=== PATIENT | female | born 1970 | race Caucasian/White ===

== ENCOUNTER 2018-06-20 17:38 | Emergency (ER) | payer OTHER ==
--- NOTE | 2018-06-20 18:07 | Emergency Department Record ---
History of Present Illness - General Chief complaint: Extremity Problem Stated complaint: FALL LT WRIST /HIP PAIN Time Seen by Provider: 06/20/18 17:45 Source: Patient, RN notes reviewed Mode of Arrival: Ambulatory - History of Present Illness Initial comments: fall one week ago and has pain in the left low back and left wrist no swelling. Patient states usin motrin 800 mg three times a day Onset/Timin -: Week(s) Location: Left, Arm, Thigh History of Same: No Severity scale (1-10): 5 Quality: Sharp Consistency: Constant Improves with: Immobilization, Rest Worsens with: Exertion, Walking, Weight bearing Associated Symptoms: Denies other symptoms - Related Data Previous Rx's Medication Instructions Recorded Cyclobenzaprine HCl [Flexeril] 10 mg PO TID #30 tablet 06/20/18 Naproxen [Naprosyn] 500 mg PO BID #30 tablet 06/20/18 Allergies Allergy/AdvReac Type Severity Reaction Status Date / Time diphenhydramine Allergy HIVES Verified 06/20/18 17:44 [From [facility]] Travel Screening - Travel/Exposure Within Last 30 Days Have you traveled within the last 30 days?: No - Travel/Exposure Within Last Year Have you traveled outside the [place] in the last year?: No - Additonal Travel Details Have you been exposed to anyone with a communicable illness?: No - Travel Symptoms Symptom Screening: None Review of Systems Reviewed: No additional complaints except as noted below Constitutional: Reports: As per HPI. Denies: Chills, Fever, Malaise, Night sweats, Weakness, Weight change Eyes: Reports: As per HPI. Denies: Eye discharge, Eye pain, Photophobia, Vision change ENT: Reports: As per HPI. Denies: Congestion, Dental pain, Ear pain, Epistaxis , Hearing loss, Throat pain Respiratory: Reports: As per HPI. Denies: Cough, Dyspnea, Hemoptysis, Stridor, Wheezes Cardiovascular: Reports: As per HPI. Denies: Arrhythmia, Chest pain, Dyspnea on exertion, Edema, Murmurs, Orthopnea, Palpitations, Paroxysmal nocturnal dyspnea, Rheumatic Fever, Syncope Endocrine: Reports: As per HPI. Denies: Fatigue, Heat or cold intolerance, Polydipsia, Polyuria Gastrointestinal: Reports: As per HPI. Denies: Abdominal pain, Constipation, Diarrhea, Hematemesis, Hematochezia, Melena, Nausea, Vomiting Genitourinary: Reports: As per HPI. Denies: Abnormal menses, Discharge, Dyspareunia, Dysuria, Frequency, Hematuria, Incontinence, Retention, Urgency Musculoskeletal: Reports: As per HPI. Denies: Arthralgia, Back pain, Gout, Joint swelling, Myalgia, Neck pain Skin: Reports: As per HPI. Denies: Bruising, Change in color, Change in hair/ nails, Lesions, Pruritus, Rash Neurological: Reports: As per HPI. Denies: Abnormal gait, Confusion, Headache, Numbness, Paresthesias, Seizure, Tingling, Tremors, Vertigo, Weakness Psychiatric: Reports: As per HPI. Denies: Anxiety, Auditory hallucinations, Depression, Homicidal thoughts, Suicidal thoughts, Visual hallucinations Hematological/Lymphatic: Reports: As per HPI. Denies: Anemia, Blood Clots, Easy bleeding, Easy bruising, Swollen glands Past Medical History - SOCIAL HISTORY Smoking Status: Never smoker Alcohol Use: None Drug Use: None - RESPIRATORY Hx Respiratory Disorders: No - CARDIOVASCULAR Hx Cardio Disorders: No - NEURO Hx Neuro Disorders: No - GI Hx GI Disorders: No - Hx Genitourinary Disorders: No - ENDOCRINE Hx Endocrine Disorders: No Comment:: hypoglycemia - MUSCULOSKELETAL Hx Musculoskeletal Disorders: No - PSYCH Hx Psych Problems: No - HEMATOLOGY/ONCOLOGY Hx Hematology/Oncology Disorders: No Family Medical History Any Significant Family History?: No Physical Exam - General General Appearance: Alert, Oriented x3, Cooperative, No acute distress - Head Head exam: Normal inspection - Eye Eye exam: Normal appearance, PERRL Pupils: Normal accommodation - ENT ENT exam: Normal exam, Mucous membranes moist, Normal external ear exam, Normal orophraynx, TM's normal bilaterally Ear exam: Normal external inspection. negative: External canal tenderness Nasal Exam: Normal inspection. negative: Discharge, Sinus tenderness Mouth exam: Normal external inspection, Tongue normal Teeth exam: Normal inspection. negative: Dental caries Throat exam: Normal inspection. negative: Tonsillar erythema, Tonsillar exudate - Neck Neck exam: Normal inspection, Full ROM. negative: Tenderness - Respiratory Respiratory exam: Normal lung sounds bilaterally. negative: Respiratory distress - Cardiovascular Cardiovascular Exam: Regular rate, Normal rhythm, Normal heart sounds - GI/Abdominal GI/Abdominal exam: Soft, Normal bowel sounds. negative: Tenderness - Rectal Rectal exam: Deferred - exam: Deferred - Extremities Extremities exam: Normal inspection, Full ROM, Normal capillary refill, Tenderness (left wrist) - Back Back exam: Reports: Normal inspection, Full ROM, Muscle spasm, Tenderness ( lumbar spine area with radiation into her buttock). Denies: Rash noted - Neurological Neurological exam: Alert, Normal gait, Oriented X3, Reflexes normal - Psychiatric Psychiatric exam: Normal affect, Normal mood - Skin Skin exam: Dry, Intact, Normal color, Warm Course Vital Signs 06/20/18 17:45 Temperature 97.9 F Pulse Rate 97 H Respiratory 18 Rate Blood Pressure 104/72 Pulse Ox 98 Medical Decision Making - Data Complexity MDM Data: X-Ray Ordered and/or Reviewed (negative wrist and lumbar spine) Disposition Clinical Impression: Left wrist sprain Qualifiers: Encounter type: initial encounter Qualified Code(s): S63.502A - Unspecified sprain of left wrist, initial encounter Lumbar strain Qualifiers: Encounter type: initial encounter Qualified Code(s): S39.012A - Strain of muscle, fascia and tendon of lower back, initial encounter Disposition: Home, Self-Care Condition: (1) Good Additional Instructions: follow up with family in 5 days Prescriptions: Cyclobenzaprine HCl [Flexeril] 10 mg PO TID #30 tablet Naproxen [Naprosyn] 500 mg PO BID #30 tablet Forms: Patient Portal Access Time of Disposition: 18:36 Quality - Quality Measures Quality Measures: N/A - Blood Pressure Screening Does Patient Have Any of the Following: No Blood Pressure Classification: Normal BP Reading Systolic Measurement: 104 Diastolic Measurement: 72 Screening for High Blood Pressure: < Normal BP, F/U Not Required > [G8783]
[2018-06-20] MEDS ORDERED: CYCLOBENZAPRINE 10MG TABLET PO ONE (18:38)
[2018-06-20] MEDS ORDERED: NAPROXEN 250 MG TABLET PO ONE (18:38)
--- NOTE | 2018-06-21 10:40 | RADIOLOGY REPORT ---
EXAM: LEFT WRIST HISTORY: PATIENT FELL A WEEK AGO WITH PAIN LEFT WRIST. TECHNIQUE: Five views of the left wrist were obtained. Comparison: None. Encounter: Initial. FINDINGS: No fracture of the left wrist identified. The joint space between the scaphoid and lunate bones is never clearly delineated on these views. No actual dislocations in the wrist identified and this may just be due to positioning, but if wrist symptoms persist, follow-up MRI of the left wrist would be suggested for further evaluation. IMPRESSION: 1. NO FRACTURE OF THE LEFT WRIST IDENTIFIED. 2. THE JOINT SPACE BETWEEN THE SCAPHOID AND LUNATE IN THE PROXIMAL CARPAL ROW NEVER WELL SEEN WHICH MAY JUST BE POSITIONAL, BUT IF WRIST SYMPTOMS PERSIST, FOLLOW-UP MRI OF THE LEFT WRIST WOULD BE SUGGESTED. JOB NUMBER: [id number] [facility]
--- NOTE | 2018-06-21 12:36 | RADIOLOGY REPORT ---
EXAM: LUMBAR SPINE, AP AND LATERAL VIEWS HISTORY: PATIENT FELL A WEEK AGO WITH PAIN LEFT SIDE OF BACK RADIATING DOWN THE LEFT LEG. TECHNIQUE: AP and lateral views of the lumbar spine were obtained. Comparison: None. Encounter: Initial. FINDINGS: Surgical clips right upper quadrant consistent with cholecystectomy. Slight tilting of the spine to the left which may simply be due to positioning or spasm. The lumbar intervertebral disk spaces are maintained. This study is somewhat limited without oblique views, but no definite fracture or subluxation in the lumbar spine identified. IMPRESSION: 1. SOME TILTING OF THE SPINE TO THE LEFT. 2. THE LUMBAR SPINE APPEARS OTHERWISE NEGATIVE. JOB NUMBER: [id number] [facility]
== END 2018-06-20 18:51 | disposition home or self-care (01) ==
LOC: ER 17:38
DX: S63.502A Unspecified sprain of left wrist, initial encounter (principal); S39.012A Strain of muscle, fascia and tendon of lower back, initial encounter; W19.XXXA Unspecified fall, initial encounter
CPT/HCPCS: 72100; 99283

== ENCOUNTER 2018-09-12 07:25 | Emergency (ER) | payer OTHER ==
[2018-09-12] MEDS ORDERED: 0.9 % SODIUM CHLORIDE 1,000 ML BAG IV ONE (07:39)
[2018-09-12] MEDS ORDERED: IBUPROFEN 600 MG TABLET PO ONE (07:39)
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
[2018-09-12 08:02] LABS: BASO % 0.4 % (0-6); EOS % 3.1 % (0-6); GRAN % 48.1 % (47-80); HEMATOCRIT 37.9 % (35.0-47.0); HEMOGLOBIN 12.9 gm/dl (11.6-16.0); LYMPH % 40.1 % (16-45); MEAN CELL VOLUME 87.9 fl (81-97); MEAN CORPUSCULAR HEMOGLOBIN 29.9 pg (27-33); MEAN PLATELET VOLUME 10.2 fl (7.4-10.4); MONO % 8.3 % (0-9); PLATELET COUNT 257 K/uL (130-400); RED BLOOD COUNT 4.31 M/uL (3.80-5.40); RED CELL DISTRIBUTION WIDTH 12.3 % (11.5-14.5); WHITE BLOOD COUNT W/O DIFF 5.5 K/uL (4.2-12.2)
[2018-09-12 08:13] LABS: BLOOD UREA NITROGEN 13 mg/dL (6-20); CREATININE 0.7 mg/dL (0.5-0.9); EST GLOMERULAR FILTRATION RATE > 60 mL/min
[2018-09-12 08:14] LABS: TOTAL PROTEIN 6.6 g/dL (6.6-8.7)
[2018-09-12 08:16] LABS: GLUCOSE,RANDOM 102 mg/dL (74-109)
[2018-09-12 08:18] LABS: ALB/GLOB RATIO 1.4 (1.1-1.8); ALBUMIN 3.8 g/dL (4.0-5.0); ALKALINE PHOSPHATASE 111 U/L (45-87); ALT/SGPT 33 U/L (<33); AST/SGOT 23 U/L (10.0-35.0); C-REACTIVE PROTEIN 0.39 mg/dL (<0.5)
== END 2018-09-12 08:51 | disposition home or self-care (01) ==
LOC: ER 07:25
DX: T50.B95A Adverse effect of other viral vaccines, initial encounter (principal); R42 Dizziness and giddiness; R51 Headache; J02.9 Acute pharyngitis, unspecified; R52 Pain, unspecified; R13.10 Dysphagia, unspecified; H92.03 Otalgia, bilateral
CPT/HCPCS: 80053; 85025; 86140; 87880; 99284; J7030

== ENCOUNTER 2019-08-23 10:53 | Emergency (ER) | payer SELFPAY ==
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
[2019-08-23] MEDS ORDERED: ONDANSETRON HCL IV 4 MG/2 ML VIAL IVP ONE (11:25)
[2019-08-23] MEDS ORDERED: ACETAMINOPHEN 1,000 MG/100 ML BTL IVPB ONE (11:25)
[2019-08-23 11:59] LABS: ABSOLUTE NEUTROPHIL COUNT 6.72; BASO % 0.1 % (0-6); EOS % 0.6 % (0-6); GRAN % 77.7 % (47-80); HEMATOCRIT 43.7 % (35.0-47.0); HEMOGLOBIN 14.7 gm/dl (11.6-16.0); MEAN CELL VOLUME 86.2 fl (81-97); MEAN CORPUSCULAR HGB CONC 33.6 g/dl (32-36); MEAN PLATELET VOLUME 10.2 fl (7.4-10.4); MONO % 3.6 % (0-9); PLATELET COUNT 332 K/uL (130-400); RED BLOOD COUNT 5.07 M/uL (3.80-5.40); RED CELL DISTRIBUTION WIDTH 12.5 % (11.5-14.5); WHITE BLOOD COUNT W/O DIFF 8.7 K/uL (4.2-12.2)
[2019-08-23 12:13] LABS: BLOOD UREA NITROGEN 12 mg/dL (6-20); CREATININE 0.7 mg/dL (0.5-0.9); EST GLOMERULAR FILTRATION RATE > 60 mL/min; PARTIAL THROMBOPLASTIN TIME 26.8 SECONDS (24.5-39.1)
[2019-08-23 12:14] LABS: TOTAL PROTEIN 8.2 g/dL (6.6-8.7)
[2019-08-23 12:16] LABS: GLUCOSE,RANDOM 107 mg/dL (74-109)
[2019-08-23 12:19] LABS: ALB/GLOB RATIO 1.4 (1.1-1.8); ALBUMIN 4.8 g/dL (4.0-5.0); ALKALINE PHOSPHATASE 131 U/L (35-104); ALT/SGPT 83 U/L (<33); AST/SGOT 54 U/L (10.0-35.0)
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
== END 2019-08-23 13:33 | disposition home or self-care (01) ==
LOC: ER 10:53
DX: G89.11 Acute pain due to trauma (principal); R51 Headache; R10.12 Left upper quadrant pain; M54.2 Cervicalgia; R07.89 Other chest pain; M25.512 Pain in left shoulder; M25.562 Pain in left knee; M54.9 Dorsalgia, unspecified; R94.5 Abnormal results of liver function studies; R11.0 Nausea; V43.53XA Car driver injured in collision with pick-up truck in traffic accident, initial encounter; Y92.411 Interstate highway as the place of occurrence of the external cause
CPT/HCPCS: 99284 ×2; 96365; 96375; 85025; 85730; 85610; 80053; 73562; 72125; 71260; 70450; 74177; Q9967; J2405